=== PATIENT | female | born 1970 | race African-American/Black ===

== ENCOUNTER 2017-02-01 12:44 | Emergency (ER) | payer SELFPAY ==
[~2017-02-01 12:44] MED LIST: ACETAMINOPHEN325 M2 PO
[2017-02-01 13:20] LABS: BASO % 0.6 % (0-2); EOS % 1.7 % (0-7); EOSINOPHIL ABSOLUTE COUNT 0.1 tho/cmm (0.0-0.7); HCT-HEMATOCRIT 38.4 % (34.0-49.0); HGB-HEMOGLOBIN 12.5 gm/dl (12.0-15.5); IMMATURE GRANULOCYTES ABSOLUTE 0.01 tho/cmm (0-0.03); IMMATURE GRANULOCYTES PERCENT 0.1 % (0-0.3); LYMPH % 34.4 % (20-45); LYMPH ABSOLUTE COUNT 2.4 tho/cmm (0.8-4.5); MCH (MEAN CORPUSCULAR HGB) 28.6 pg (28.0-32.0); MCHC MEAN CORPUSCULAR HGB CONC 32.6 % (32.0-36.0); MCV (MEAN CELL VOLUME) 87.9 fl (82.0-96.0); MEAN PLATELET VOLUME 11.7 cmc (9.4-12.4); MONO % 7.1 % (0-12); MONOCYTE ABSOLUTE COUNT 0.5 tho/cmm (0.0-1.2); NEUTROPHIL ABSOLUTE COUNT 3.9 tho/cmm (1.6-8.0); NEUTROPHIL-AUTOMATED 3.9 tho/cmm (1.6-8.0); NEUTROPHILS % 56.1 % (40-80); PLATELET COUNT 228 tho/cmm (150-450); RED BLOOD COUNT 4.37 mil/cmm (4.00-5.20); RED CELL DISTRIBUTION WIDTH 12.5 % (12.4-16.4)
[2017-02-01 13:29] LABS: PREGNANCY-SERUM NEGATIVE (NEGATIVE)
[2017-02-01 13:35] LABS: ANION GAP 11 mmol/L (0-20); BLOOD UREA NITROGEN 8 mg/dl (6-24); CALCIUM 9.1 mg/dl (8.5-10.5); CARBON DIOXIDE-VENOUS 27 mmol/L (22-32); CHLORIDE 108 mmol/l (96-110); CREATININE 0.79 mg/dl (0.50-1.10); GLUCOSE 97 mg/dL (70-110); POTASSIUM 4.2 mmol/L (3.7-5.1); SODIUM 142 mmol/L (135-145); eGFR VALUE FOR BLACK >90 mL/Min
[2017-04-10] MEDS ORDERED: ZOFRAN ODT4 MG PO (14:17)
[2017-04-10] MEDS ORDERED: PYRIDIUM200 M2 PO (14:17)
[2017-04-10] MEDS ORDERED: MACROBID 100 M100 M1 PO (14:17)
[2017-05-25] MEDS ORDERED: NO HOME MEDICATION XX (14:41)
[2017-05-25] MEDS ORDERED: NORCO 5-325 TA1 EACH PO (16:28)
[2017-07-14] MEDS ORDERED: KEFLEX500 M4 PO (13:21)
[2017-07-14] MEDS ORDERED: BENADRYL25 M3 PO (13:21)
== END 2017-02-01 16:35 ==
LOC: EDMED 12:44
PROVIDERS: Emergency Medicine
DX: R07.89 Other chest pain (principal); K21.9 Gastro-esophageal reflux disease without esophagitis; Z98.890 Other specified postprocedural states; Z79.899 Other long term (current) drug therapy
CPT/HCPCS: J7030; Q9967